=== PATIENT | male | born 1960 | race Caucasian/White ===

== ENCOUNTER 2024-07-06 15:24 | Observation (INO) ==
--- NOTE | 2024-07-06 15:51 | Emergency Department Note ---
HPI - Extremity Injury (Lower) General Chief Complaint: Extremity Injury, Lower Stated Complaint: LEFT KNEE PAIN Time Seen by Provider: 07/06/24 15:45 Source: patient and family Mode of arrival: walk-in Limitations: no limitations History of Present Illness HPI Narrative: This is a 64 year old male patient that presents to the ER with c/o left knee pain and redness since Wednesday when he woke up. Patient denies any numbness, tingling, weakness or N/V. Patient denies any fever, chills, or known injury MD complaint: Reports other (Knee pain) Onset (ago): day(s) (4) Injury: Left: knee (Pain and tenderness with erythema streaking up the leg) Type of Injury: Reports unknown Place: Reports home Severity: moderate Relieving factors: Reports immobilization Exacerbating factors: Reports weight bearing, movement and palpation Other symptoms: Reports other (Pain and tenderness) Treatments prior to arrival: Reports NSAIDS Related Data Allergies Allergy/AdvReac Type Severity Reaction Status Date / Time No Known Drug Allergies Allergy Verified 07/06/24 15:49 Review of Systems 2 Status of ROS 10 or more systems reviewed and unremark able except as noted in history and below Constitutional Denies: fever, chills, change in weight or fatigue Eyes Denies: change in vision, blurry vision or blind spots Ears, nose, mouth, and throat Denies: throat pain, neck pain, throat swelling, difficulty swallowing, hoarseness or mouth pain Cardiovascular Denies: chest pain, palpitations, edema, swelling of feet/ankles or lightheadedness Respiratory Denies: shortness of breath, cough, wheezing, stridor or pain on inspiration Gastrointestinal Denies: abdominal pain, nausea, vomiting, coffee grounds in vomit or heartburn Genitourinary Denies: painful urination, urinary frequency, urinary urgency or blood in urine Musculoskeletal Reports: extremity pain and joint pain; Denies: back pain, neck pain, extremity swelling or limited range of motion Integumentary/Breast Reports: redness (left knee); Denies: rash or itching Neurological Denies: headache, numbness in extremities, weakness in extremities, lack of coordination or dizziness Psychiatric Denies: anxiety, mood swings, panic attacks, change in sleep pattern or hopelessness Endocrine Denies: excessive urination, excessive thirst, fatigue, cold intolerance or excessive sweating Hematologic/Lymphatic Denies: easy bruising, easy bleeding or enlarged lymph nodes Allergic/Immunologic Denies: hives, throat swelling, tongue swelling or facial swelling PFSH PFSH Medical History (Updated 07/06/24 @ 15:51 by Mayra Kennedy, RN) HLD (hyperlipidemia) Hypertension Depression Surgical History (Updated 07/06/24 @ 15:51 by Mayra Kennedy, RN) History of knee surgery History of hernia repair History of neck surgery History of shoulder surgery Social History Smoking status: never smoker Exam 2 Constitutional: normal general appearance and no apparent distress HENMT: normocephalic, head/scalp atraumatic, hearing grossly normal bilaterally, external ears normal, nasal mucous membranes normal, external nose normal, oral mucous membranes normal, oropharynx normal and dentition normal Eyes: PERRL, EOMs intact bilaterally, conjunctivae normal and no scleral icterus Neck/C-Spine: visual inspection normal and trachea midline Lymph: no lymphadenopathy noted Chest: inspection of chest normal Respiratory: breath sounds equal bilaterally, normal respiratory effort, clear to auscultation bilaterally, no wheezes, no rales, no retractions and no use of accessory muscles Cardiovascular: normal heart rate noted, regular rhythm noted, no gallop, no rub, no murmur, no JVD, no clicks, peripheral pulses 2+ throughout, no bruits noted and no additional abnormal heart sounds Gastrointestinal: abdomen normal to inspection, abdomen soft to palpation, nontender to palpation, nontender to percussion, nondistended, normoactive bowel sounds, no hepatosplenomegaly, no masses, no pulsatile mass, no ascites and no hernia Genitourinary: no CVA tenderness Back/Pelvis: spine normal to inspection Extremities: abnormal to inspection (left knee with redness , hot to touch) redness streaking from left knee to below left knee Neurology: no focal motor deficit noted, gait normal, speech normal, coordination normal, no pronator drift noted, no fasciculations noted and GCS normal Psychiatry: Mental Status Exam documented within this Exam's Psych section mental status grossly normal, oriented x3, thought process normal, cooperative, affect normal and memory normal Skin: skin color normal Image: Body (4 view):  1. Erythema and tenderness Course Course Hospital Course: 1800: signed patient over to Ilya ROWE for continued care 2030: Patient's ultrasound has returned revealing no DVT but does show a effusion of the left knee, patient does have mild leukocytosis with 11,000 white blood cell count, [facility] for IV antibiotics, cellulitis, knee effusion, pain control, and ongoing evaluation of the area. Patient and family have agreed with the treatment plan at this time. Discharge Plan Discharge Patient Disposition: Admitted As Observation Condition: Stable Clinical Impression: Effusion of left knee joint, Cellulitis, Leukocytosis, Dehydration, Knee pain, left Time of Disposition: 21:00
[2024-07-06 16:08] LABS: Basophils #(Absolute) Auto 0.1 (0.0-0.1); Basophils%(Percent) Auto 0.6 (0.0-1.3); Eosinophils#(Absolute)Auto 0.3 (0.0-0.3); Eosinophils%(Percent) Auto 2.8 % (0.0-4.0); Granulocytes % - Auto 65.2 % (49.1-73.1); Hematocrit 40.4 % (41.3-50.1); Monocytes %(Percent)- Auto 8.9 % (4.5-10.7); Platelet Count 273 K/uL (142-355); White Blood Count 10.8 K/uL (3.7-9.6)
[2024-07-06 16:12] LABS: Potassium 4.3 mmol/L (3.6-5.2)
[2024-07-06] MEDS: CLINDAMYCIN PHOSPHATE/D5W 900 MG/50 ML PIGGYBACK IV STA (16:37)
[2024-07-06] MEDS: 0.9 % SODIUM CHLORIDE 1000 ML 1,000 ML IV STA (16:38)
[2024-07-06] MEDS: KETOROLAC 30 MG/ML INJ VIAL IVP ONE (16:38)
[2024-07-06] MEDS ORDERED: ONDANSETRON HCL/PF 4 MG/2 ML VIAL INJ PRN (22:09)
[2024-07-06] MEDS ORDERED: bisacodyL 10 MG SUPP.RECT PR PRN (22:09)
[2024-07-06] MEDS ORDERED: MORPHINE SULFATE 4 MG/ML CARTRIDGE IV PRN (22:09)
[2024-07-06] MEDS ORDERED: MAGNESIUM, ALUMINUM HYDROXIDE 30 ML ORAL.SUSP PO PRN (22:09)
[2024-07-06] MEDS ORDERED: ACETAMINOPHEN 1000 MG/100 ML 1,000 MG/100 ML IV.SOLN IV PRN (22:09)
[2024-07-06] MEDS: ACETAMINOPHEN 1000 MG/100 ML 1,000 MG/100 ML IV.SOLN IV STA (22:12)
[2024-07-06 22:41] LABS: Urine Appearance CLEAR (CLEAR); Urine Blood NEGATIVE (NEG - TRACE); Urine Color AMBER (STRAW/YELL.)
[2024-07-06 22:42] LABS: Urine Urobilinogen Normal (NORMAL)
[2024-07-07] MEDS: 0.9 % SODIUM CHLORIDE 1000 ML 1,000 ML IV SCH (00:29)
[2024-07-07] MEDS: CLINDAMYCIN PHOSPHATE/D5W 300 MG/50 ML PIGGYBACK IV SCH (00:29)
[2024-07-07 05:46] LABS: Basophils #(Absolute) Auto 0.1 (0.0-0.1); Basophils%(Percent) Auto 0.8 (0.0-1.3); Eosinophils%(Percent) Auto 0.1 % (0.0-4.0); Granulocytes % - Auto 72.3 % (49.1-73.1); Granulocytes#(Absolute)- Auto 6.9 (2.0-6.2); Hematocrit 36.9 % (41.3-50.1); Mean Corpuscular Volume 88.4 fl (81.9-96.5); Monocytes #(Absolute)- Auto 0.7 (0.2-0.8); Monocytes %(Percent)- Auto 7.2 % (4.5-10.7); Platelet Count 255 K/uL (142-355); White Blood Count 9.6 K/uL (3.7-9.6)
[2024-07-07] MEDS: KETOROLAC 30 MG/ML INJ VIAL IVP PRN (07:14)
[2024-07-07] MEDS: SERTRALINE HCL 50 MG TABLET PO SCH (10:33)
[2024-07-07] MEDS: PROPRANOLOL HCL 60 MG PO SCH ×2 (10:33→21:33)
[2024-07-07] MEDS: SIMVASTATIN 40 MG TABLET PO SCH ×2 (10:34→21:34)
[2024-07-07] MEDS: AMLODIPINE OLMESARTAN PO SCH (10:39)
[2024-07-07] MEDS: SIMVASTATIN 10 MG TABLET ONE ×2 (10:40→21:38)
[2024-07-07] MEDS: METHYLPREDNISOLONE SOD SUCC/PF 125 MG/2 ML VIAL IVP SCH (14:54)
[2024-07-07] MEDS: CEFTRIAXONE SODIUM 1 GM in 0.9 % SODIUM CHLORIDE MB+ 50 ML IV SCH (22:27)
[2024-07-08 05:02] LABS: Basophils%(Percent) Auto 0.2 (0.0-1.3); Granulocytes % - Auto 84.2 % (49.1-73.1); Granulocytes#(Absolute)- Auto 9.4 (2.0-6.2); Hematocrit 38.2 % (41.3-50.1); Mean Corpuscular Volume 88.4 fl (81.9-96.5); Monocytes #(Absolute)- Auto 0.3 (0.2-0.8); Platelet Count 308 K/uL (142-355); White Blood Count 11.1 K/uL (3.7-9.6)
[2024-07-08 05:29] LABS: Potassium 4.1 mmol/L (3.6-5.2)
[2024-07-08 08:05] VITALS: BP 131/87; PULSE 60; RESP 18; TEMP 98.3
[2024-07-08] MEDS: MULTIVITAMIN TABLET PO SCH (08:25)
--- NOTE | 2024-07-08 09:23 | History & Physical Report ---
H&P: HPI History of Present Illness Chief complaint: LEFT KNEE PAINX4 DAYS Narrative: This is a 64 year old male patient- With past medical history including hypertension, hyperlipidemia, depression and type 2 diabetes- that presented to the ER with c/o left knee pain and redness since Wednesday morning. Patient denies any numbness, tingling, weakness or N/V. Patient denies any fever, chills, or known injury. Patient's ultrasound revealed an effusion of the left knee but no DVT. Patient did have mild leukocytosis with 11,000 white blood cell count. [facility] for suspected cellulitis with knee effusion, pain control, and ongoing evaluation of the area. Review of Systems Status of ROS 10 or more systems reviewed and unremark able except as noted in history and below Constitutional Denies: fever, chills, change in weight or fatigue Eyes Denies: change in vision, blurry vision or blind spots Ears, nose, mouth, and throat Denies: throat pain, neck pain, throat swelling, difficulty swallowing, hoarseness or mouth pain Cardiovascular Denies: chest pain, palpitations, edema, swelling of feet/ankles, lightheadedness or shortness of breath with exertion Respiratory Denies: shortness of breath, cough, wheezing, stridor or pain on inspiration Gastrointestinal Denies: abdominal pain, nausea, vomiting, coffee grounds in vomit, heartburn or difficulty swallowing Genitourinary Denies: painful urination, urinary frequency, urinary urgency or blood in urine Musculoskeletal Reports: extremity pain and joint pain; Denies: back pain, neck pain, extremity swelling or limited range of motion Integumentary/Breast Reports: redness (left knee); Denies: rash or itching Neurological Denies: headache, numbness in extremities, weakness in extremities, lack of coordination or dizziness Psychiatric Denies: anxiety, mood swings, panic attacks, change in sleep pattern or hopelessness Endocrine Denies: excessive urination, excessive thirst, fatigue, cold intolerance or excessive sweating Hematologic/Lymphatic Denies: easy bruising, easy bleeding or enlarged lymph nodes Allergic/Immunologic Denies: hives, throat swelling, tongue swelling, facial swelling or wheezing [facility] Medical History (Updated 07/08/24 @ 09:54 by Natalia Linda NP) Type 2 diabetes mellitus with unspecified complications HLD (hyperlipidemia) Hypertension Depression Surgical History History of knee surgery History of hernia repair History of neck surgery History of shoulder surgery Social History Smoking status: never smoker Problems where you live: no known problems Highest level of school completed/degree received: high school Do you think of yourself as: straight/heterosexual Gender Identity: male Meds Home Medications and Allergies Home Medications Medication Instructions Recorded Confirmed Type amlodipine 5 mg-olmesartan 40 mg 1 tab PO QDAY 07/07/24 07/07/24 History tablet multivitamin (Daily Multi-Vitamin 1 tab PO DAILY 07/07/24 07/07/24 History tablet) propranolol 60 mg capsule,24 60 mg PO QDAY 07/07/24 07/07/24 History hr,extended release semaglutide 2 mg/dose (8 mg/3 mL) 2 mg subcut QWEEK 07/07/24 07/07/24 History subcutaneous pen injector (Ozempic) sertraline 50 mg tablet 150 mg PO QDAY 07/07/24 07/07/24 History simvastatin 40 mg tablet 40 mg PO QDAY 07/07/24 07/07/24 History terbinafine HCl 250 mg tablet 250 mg PO QDAY 07/07/24 07/07/24 History clindamycin HCl 300 mg capsule 300 mg PO TID Cellulitis and 07/08/24 Rx effusion of left knee 7 days #21 caps methylprednisolone 4 mg tablets in See Rx Instructions PO .COMPLEX 07/08/24 Rx a dose pack (Medrol (Samson)) Left knee pain and effusion #21 ea Allergies Allergy/AdvReac Type Severity Reaction Status Date / Time No Known Drug Allergies Allergy Verified 07/07/24 00:56 Exam Constitutional: normal general appearance, no apparent distress, abnormal body habitus (obese), no limitations and alert Vital Signs - 24 hr 07/07/24 10:33 07/07/24 11:57 07/07/24 16:00 Temperature 98.2 F 97.8 F Pulse Rate [Right] 78 73 Respiratory Rate 18 18 Blood Pressure 120/75 Blood Pressure [Le ft Arm] 148/86 148/90 Pulse Oximetry 96 97 Oxygen Delivery Me thod Room Air Room Air 07/07/24 20:03 07/07/24 23:39 07/08/24 04:23 Temperature 97.8 F 98.0 F 97.7 F Pulse Rate [Right] 107 H 92 H 80 Respiratory Rate 24 18 20 Blood Pressure Blood Pressure [Le ft Arm] 141/90 139/80 123/68 Pulse Oximetry 95 94 L 95 Oxygen Delivery Me thod Nasal Cannula 07/08/24 05:00 07/08/24 08:04 Temperature 97.7 F 98.3 F Pulse Rate [Right] 80 60 Respiratory Rate 20 18 Blood Pressure Blood Pressure [Le ft Arm] 123/68 131/87 Pulse Oximetry 95 96 Oxygen Delivery Me thod Room Air HENMT: normocephalic, head/scalp atraumatic, hearing grossly normal bilaterally, external ears normal, nasal mucous membranes normal, external nose normal, oral mucous membranes normal, oropharynx normal and dentition normal Eyes: PERRL, EOMs intact bilaterally, conjunctivae normal and no scleral icterus Neck/C-Spine: visual inspection normal and trachea midline Lymph: no lymphadenopathy noted Chest: inspection of chest normal and palpation of chest normal Respiratory: breath sounds equal bilaterally, normal respiratory effort, clear to auscultation bilaterally, no wheezes, no rales, no retractions and no use of accessory muscles Cardiovascular: normal heart rate noted, regular rhythm noted, no murmur, no JVD, peripheral pulses 2+ throughout and no additional abnormal heart sounds Gastrointestinal: abdomen normal to inspection, abdomen soft to palpation, nontender to palpation, nontender to percussion, nondistended, normoactive bowel sounds, no hepatosplenomegaly, no masses, no pulsatile mass, no ascites and no hernia Genitourinary: no CVA tenderness Back/Pelvis: spine normal to inspection, no thoracic spine tenderness and no lumbar spine tenderness Extremities: abnormal to inspection (left knee with redness , hot to touch) and tenderness noted (tenderness below patella of left knee) redness streaking from left knee to below left knee Neurology: no focal motor deficit noted, gait normal, speech normal, coordination normal, no pronator drift noted, no fasciculations noted and GCS normal Psychiatry: Mental Status Exam documented within this Exam's Psych section mental status grossly normal, oriented x3, thought process normal, cooperative, affect normal and memory normal Skin: skin color normal, no wounds, skin turgor normal, no jaundice and no petechiae Assessment and Plan Assessment and Plan (1) Cellulitis of left knee: Assessment and Plan: Admit for IV antibiotics, pain control, and monitoring of area Clindamycin IV 300 mg every 6 hours Rocephin 1 g daily Code(s): L03.116 - Cellulitis of left lower limb (2) Effusion, left knee: Assessment and Plan: Admit for IV antibiotics, pain control, and monitoring of area Clindamycin IV 300 mg every 6 hours Rocephin 1 g daily P.R.I.C.E-continue with Brannon wrap as directed, elevate and position for comfort and ice packs as directed and as needed for comfort and swelling. Code(s): M25.462 - Effusion, left knee (3) Left knee pain: Assessment and Plan: Admit for IV antibiotics, pain control, and monitoring of area Clindamycin IV 300 mg every 6 hours Rocephin 1 g daily P.R.I.C.E-continue with Brannon wrap as directed, elevate and position for comfort and ice packs as directed and as needed for comfort and swelling. Toradol 15 mg IV every 6 hours as needed for pain Qualifiers: Chronicity: acute Qualified Code(s): M25.562 - Pain in left knee Code(s): M25.562 - Pain in left knee (4) Type 2 diabetes mellitus with unspecified complications: Assessment and Plan: Fingerstick blood sugars before meals and at bedtime Diabetic diet Continue home meds as directed Ozempic 2 mg subcu weekly. Code(s): E11.8 - Type 2 diabetes mellitus with unspecified complications (5) Hypertension: Assessment and Plan: Vital signs per protocol Continue home medicines as directed: olmesartanamlodipine 1 tab daily, propranolol 60 mg p.o. daily Qualifiers: Hypertension type: primary hypertension Qualified Code(s): I10 - Essential (primary) hypertension Code(s): I10 - Essential (primary) hypertension (6) HLD (hyperlipidemia): Assessment and Plan: Diabetic diet Continue home medications as directed-simvastatin 40 mg p.o. nightly Qualifiers: Hyperlipidemia type: mixed hyperlipidemia Qualified Code(s): E78.2 - Mixed hyperlipidemia Code(s): E78.5 - Hyperlipidemia, unspecified (7) Depression: Assessment and Plan: Currently asymptomatic and reports manage well on current regiment. Will continue home medications as directed sertraline 150 mg p.o. daily Qualifiers: Depression Type: unspecified Qualified Code(s): F32.A - Depression, unspecified Code(s): F32.A - Depression, unspecified Plan Admit to the [facility] floor for IV antibiotics for suspected cellulitis with knee effusion, pain control, and ongoing evaluation of the area. Consult [place] [facility] at discharge for follow-up. Results Labs Labs: CBC WBC 11.1 K/uL (3.7-9.6) H 07/08/24 05:00 RBC 4.3 M/uL (4.40-5.80) L 07/08/24 05:00 Hgb 12.8 gm/dL (14.0-17.4) L 07/08/24 05:00 Hct 38.2 % (41.3-50.1) L 07/08/24 05:00 MCV 88.4 fl (81.9-96.5) 07/08/24 05:00 MCH 29.7 pg (27.6-33.7) 07/08/24 05:00 MCHC 33.5 g/dl (33.0-35.7) 07/08/24 05:00 RDW 13.4 % (11.0-14.8) 07/08/24 05:00 Plt Count 308 K/uL (142-355) 07/08/24 05:00 MPV 8.1 fl (6.0-10.4) 07/08/24 05:00 Gran % 84.2 % (49.1-73.1) H 07/08/24 05:00 Lymph % (Auto) 12.6 % (17.6-39.05) L 07/08/24 05:00 [place] % (Auto) 3.0 % (4.5-10.7) L 07/08/24 05:00 Eos % (Auto) 0.0 % (0.0-4.0) 07/08/24 05:00 Baso % (Auto) 0.2 (0.0-1.3) 07/08/24 05:00 Lymph # (Auto) 1.4 (0.8-2.9) 07/08/24 05:00 [place]key # (Auto) 0.3 (0.2-0.8) 07/08/24 05:00 Eos # (Auto) 0.0 (0.0-0.3) 07/08/24 05:00 Baso # (Auto) 0.0 (0.0-0.1) 07/08/24 05:00 Absolute Gran (auto) 9.4 (2.0-6.2) H 07/08/24 05:00 BMP Sodium 142 mmol/L (136-145) 07/08/24 05:00 Potassium 4.1 mmol/L (3.6-5.2) 07/08/24 05:00 Chloride 108.0 mmol/L (98-107) H 07/08/24 05:00 Carbon Dioxide 25 mmol/L (21-32) 07/08/24 05:00 Anion Gap 9.0 mEq/L (4-14) 07/08/24 05:00 BUN 29 mg/dL (7-18) H 07/08/24 05:00 Creatinine 1.4 mg/dL (0.6-1.3) H 07/08/24 05:00 Estimated GFR 56.8 (>59.9) 07/08/24 05:00 Glucose 110 mg/dL (70-110) 07/08/24 05:00 Calcium 8.5 mg/dL (8.5-10.1) 07/08/24 05:00 Phosphorus 3.3 mg/dL (2.5-4.9) 07/08/24 05:00 Magnesium 1.9 mg/dL (1.8-2.4) 07/08/24 05:00 Total Bilirubin 0.22 mg/dL (0.0-1.0) 07/08/24 05:00 AST 14 U/L (15-37) L 07/08/24 05:00 ALT 23 U/L (30-65) L 07/08/24 05:00 Alkaline Phosphatase 45 U/L (50-136) L 07/08/24 05:00 Total Protein 6.5 g/dL (6.4-8.2) 07/08/24 05:00 Albumin 2.8 g/dL (3.4-5.0) L 07/08/24 05:00 Liver Function Total Bilirubin 0.22 mg/dL (0.0-1.0) 07/08/24 05:00 AST 14 U/L (15-37) L 07/08/24 05:00 ALT 23 U/L (30-65) L 07/08/24 05:00 Alkaline Phosphatase 45 U/L (50-136) L 07/08/24 05:00 Total Protein 6.5 g/dL (6.4-8.2) 07/08/24 05:00 Albumin 2.8 g/dL (3.4-5.0) L 07/08/24 05:00 Urine Urine Color Sa[place] (STRAW/YELL.) 07/06/24 22:05 Urine Appearance Clear (CLEAR) 07/06/24 22:05 Ur Specific [place] 1.030 (1.001-1.035) 07/06/24 22:05 Urine Protein Negative (NEGATIVE) 07/06/24 22:05 Urine Glucose (UA) 4+ (NORMAL) 07/06/24 22:05 Urine Ketones Negative (NEGATIVE) 07/06/24 22:05 Urine Occult Blood Negative (NEG - TRACE) 07/06/24 22:05 Urine Nitrite Negative (NEGATIVE) 07/06/24 22:05 Urine Bilirubin Negative (NEGATIVE) 07/06/24 22:05 Urine Urobilinogen Normal (NORMAL) 07/06/24 22:05 Ur Leukocyte Esterase Negative (NEGATIVE) 07/06/24 22:05 Pulse Oximetry SpO2 results: 96% RA Attestation: I have reviewed the pertinent pulse oximetry results. Imaging Imaging ordered: Venous US and other (left knee xray) Attestation: I have reviewed the pertinent imaging results. Radiologist's impression: EXAM: XR KNEE LT 3V HISTORY: painpain; COMPARISON: None. TECHNIQUE: AP, lateral, and oblique views were acquired. FINDINGS: The alignment is anatomic. There is no fracture or dislocation. There is no significant degeneration. There is no worrisome soft tissue abnormality. IMPRESSION: Negative. THIS IS AN ELECTRONICALLY VERIFIED FINAL REPORT 07/06/2024 4:04 PM - Electronically signed by Mari Webb MD EXAM: US VENOUS DUPLEX LE LT HISTORY: LT KNEE PAIN ; COMPARISON: No relevant prior studies available. TECHNIQUE: Grayscale and color Doppler images of the left lower extremity. FINDINGS: Common femoral, femoral, popliteal and posterior tibial veins demonstrate normal compressibility, color Doppler flow, waveforms and augmentation with no filling defects. Soft tissues: Left knee joint effusion. IMPRESSION: 1. No evidence of deep venous thrombus. 2. Nonspecific joint effusion. THIS IS AN ELECTRONICALLY VERIFIED FINAL REPORT 07/06/2024 7:18 PM - Electronically signed by Ryan Preston MD
--- NOTE | 2024-07-08 11:27 | Discharge Summary ---
DS: Providers Provider Date of admission: 07/06/24 22:09 Primary care physician: LUKE ESTRELLA MD Admitting clinician: Alicia Cardona Attending physician on admission: Linda Dash Consults: 07/07/24 10:21 Consult to Physical Therapy Routine Comment: Consulting Provider: Reason for consultation: knee and leg pain and effusion Physician Instructions: evaluate and treat Attending physician on discharge: Linda Dash Discharging clinician: Natalia Linda Anticipated date of discharge: 07/08/24 DS: Diagnosis Discharge Diagnosis (1) Cellulitis of left knee: (2) Effusion, left knee: Assessment and plan: Complete antibiotics as directed along with medrol dose pack. Follow up with [facility]o- [facility]- Call them on Wednesday and schedule follow up appo intment. ROM and exercise as tolerated. P.R.I.C.E-continue with Brannon wrap as directed, elevate and position for comfort and ice packs as directed and as needed for comfort and swelling. Schedule appointment with PCP for hospital follow-up- Call them on Wednesday and schedule follow-up appointment. (3) Left knee pain: Assessment and plan: Complete antibiotics as directed along with medrol dose pack. Follow up with [facility]- [facility]- Call them on Wednesday and schedule follow up appointment. ROM and exercise as tolerated. P.R.I.C.E-continue with Brannon wrap as directed, elevate and position for comfort and ice packs as directed and as needed for comfort and swelling. Schedule appointment with PCP for hospital follow-up- Call them on Wednesday and schedule follow-up appointment. Continue home medications as directed. Qualifiers: Chronicity: acute Qualified Code(s): M25.562 - Pain in left knee (4) Type 2 diabetes mellitus with unspecified complications: Assessment and plan: Continue to monitor blood sugars before meals and at bedtime. Continue with diabetic diet. Continue home medications as directed. Schedule hospital follow-up appointment with PCP-call them on Wednesday to schedule this appointment. (5) Hypertension: Assessment and plan: Continue monitoring blood pressures log any elevated readings and bring that log to your follow-up appointment with your primary care provider. Continue home medications as directed Schedule hospital follow-up appointment with PCP-call them on Wednesday to schedule this appointment. Qualifiers: Hypertension type: primary hypertension Qualified Code(s): I10 - Essential (primary) hypertension (6) HLD (hyperlipidemia): Assessment and plan: Continue with diabetic diet. Continue home medications as directed. Schedule hospital follow-up appointment with PCP-call them on Wednesday to schedule this appointment. Reviewed importance of diet and exercise. Qualifiers: Hyperlipidemia type: mixed hyperlipidemia Qualified Code(s): E78.2 - Mixed hyperlipidemia (7) Depression: Assessment and plan: Continue home medications as directed. Schedule hospital follow-up appointment with PCP-call them on Wednesday to schedule this appointment. Report any new/worsening symptoms. Qualifiers: Depression Type: unspecified Qualified Code(s): F32.A - Depression, unspecified Plan Continue home medications as directed. Is important that you schedule a hospital follow-up appointment with your PCP- call them on Wednesday and schedule this follow-up appointment. It is also important that you follow-up with your orthopedic physician at [facility]-call them on Wednesday as well and schedule this follow-up appointment. Contact us if you have any difficulty obtaining your medications or these follow-up appointments. DS: Summary Hospital Course Hospital Course: Patient was admitted to the [facility] floor for IV antibiotics for suspected cellulitis with knee effusion, pain control, and ongoing evaluation of the area. His hospital course remained uneventful. The erythema and swelling that was at the left knee on admission has resolved. He has continued with mild tenderness to palpitation below the left patella. He rates his pain controlled at a scale of "4" of 10 on pain scale. He is using the Brannon wrap and ice packs as directed and as needed for comfort. He is ambulatory without assistance. He continues to be neurovascularly intact and denies any numbness or tingling. His labs have improved following IV hydration and IV antibiotics. He is stable and ready to be discharged home to follow-up outpatient with his PCP and orthopedic provider. Time spent discussing smoking cessation with patient: more than 10 minutes Status at Discharge Functional status at discharge: independent ambulation Overall status at discharge: patient is back to baseline Time Spent with Patient Time attestation: Total time spent providing and/or coordinating discharge services: Time spent: greater than 30 minutes Exam Constitutional: normal general appearance, no apparent distress, abnormal body habitus (obese), no limitations and alert Vital Signs - 24 hr 07/07/24 11:57 07/07/24 16:00 07/07/24 20:03 Temperature 98.2 F 97.8 F 97.8 F Pulse Rate [Right] 78 73 107 H Respiratory Rate 18 18 24 Blood Pressure [Le ft Arm] 148/86 148/90 141/90 Pulse Oximetry 96 97 95 Oxygen Delivery Me thod Room Air Room Air Nasal Cannula 07/07/24 23:39 07/08/24 04:23 07/08/24 05:00 Temperature 98.0 F 97.7 F 97.7 F Pulse Rate [Right] 92 H 80 80 Respiratory Rate 18 20 20 Blood Pressure [Le ft Arm] 139/80 123/68 123/68 Pulse Oximetry 94 L 95 95 Oxygen Delivery Me thod 07/08/24 08:04 Temperature 98.3 F Pulse Rate [Right] 60 Respiratory Rate 18 Blood Pressure [Le ft Arm] 131/87 Pulse Oximetry 96 Oxygen Delivery Me thod Room Air HENMT: normocephalic, head/scalp atraumatic, hearing grossly normal bilaterally, external ears normal, nasal mucous membranes normal, external nose normal, oral mucous membranes normal, oropharynx normal and dentition normal Eyes: PERRL, EOMs intact bilaterally, conjunctivae normal and no scleral icterus Neck/C-Spine: visual inspection normal and trachea midline Lymph: no lymphadenopathy noted Chest: inspection of chest normal and palpation of chest normal Respiratory: breath sounds equal bilaterally, normal respiratory effort, clear to auscultation bilaterally, no wheezes, no rales, no retractions and no use of accessory muscles Cardiovascular: normal heart rate noted, regular rhythm noted, no gallop, no rub, no murmur, no JVD, no clicks, peripheral pulses 2+ throughout, no bruits noted and no additional abnormal heart sounds Gastrointestinal: abdomen normal to inspection, abdomen soft to palpation, nontender to palpation, nontender to percussion, nondistended, normoactive bowel sounds, no hepatosplenomegaly, no masses, no pulsatile mass, no ascites and no hernia Genitourinary: no CVA tenderness Back/Pelvis: spine normal to inspection, no thoracic spine tenderness and no lumbar spine tenderness Extremities: normal to inspection (left knee with redness , hot to touch) and tenderness noted (tenderness below patella of left knee) Neurology: no focal motor deficit noted, gait normal, speech normal, coordination normal, no pronator drift noted, no fasciculations noted and GCS normal Psychiatry: Mental Status Exam documented within this Exam's Psych section mental status grossly normal, oriented x3, thought process normal, cooperative, affect normal and memory normal Skin: skin color normal, no wounds, skin turgor normal, no jaundice and no petechiae DS: Data Data Completed and Pending Labs on day of discharge: Labs from last 24 hours 07/08/24 07/07/24 05:00 11:05 WBC 11.1 H RBC 4.3 L Hgb 12.8 L Hct 38.2 L MCV 88.4 MCH 29.7 MCHC 33.5 RDW 13.4 Plt Count 308 MPV 8.1 Gran % 84.2 H Lymph % (Auto) 12.6 L [place] % (Auto) 3.0 L Eos % (Auto) 0.0 Baso % (Auto) 0.2 Lymph # (Auto) 1.4 [place] # (Auto) 0.3 Eos # (Auto) 0.0 Baso # (Auto) 0.0 Absolute Gran (auto) 9.4 H Sodium 142 Potassium 4.1 Chloride 108.0 H Carbon Dioxide 25 Anion Gap 9.0 BUN 29 H Creatinine 1.4 H Estimated GFR 56.8 Glucose 110 Uric Acid 5.3 Calcium 8.5 Phosphorus 3.3 Magnesium 1.9 Total Bilirubin 0.22 AST 14 L ALT 23 L Alkaline Phosphatase 45 L C-Reactive Protein 2.600 H 6.800 H Total Protein 6.5 Albumin 2.8 L Preliminary micro results at discharge 07/07/24 14:30 Blood Culture - Preliminary Blood - Venous Draw (Peripheral) 07/07/24 14:05 Blood Culture - Preliminary Blood - Venous Draw (Peripheral) Imaging Venous US: Attestation: I have reviewed the pertinent imaging results. Radiologist's impression: EXAM: US VENOUS DUPLEX LE LT HISTORY: LT KNEE PAIN ; COMPARISON: No relevant prior studies available. TECHNIQUE: Grayscale and color Doppler images of the left lower extremity. FINDINGS: Common femoral, femoral, popliteal and posterior tibial veins demonstrate normal compressibility, color Doppler flow, waveforms and augmentation with no filling defects. Soft tissues: Left knee joint effusion. IMPRESSION: 1. No evidence of deep venous thrombus. 2. Nonspecific joint effusion. THIS IS AN ELECTRONICALLY VERIFIED FINAL REPORT 07/06/2024 7:18 PM - Electronically signed by Ryan Preston MD Left knee x-ray: Attestation: I have reviewed the pertinent imaging results. Radiologist's impression: EXAM: XR KNEE LT 3V HISTORY: painpain; COMPARISON: None. TECHNIQUE: AP, lateral, and oblique views were acquired. FINDINGS: The alignment is anatomic. There is no fracture or dislocation. There is no significant degeneration. There is no worrisome soft tissue abnormality. IMPRESSION: Negative. THIS IS AN ELECTRONICALLY VERIFIED FINAL REPORT 07/06/2024 4:04 PM - Electronically signed by Mari Webb MD Discharge Plan Discharge Disposition: Home, Self-Care Condition: Stable Discharge Medications: New clindamycin HCl 300 mg capsule 300 mg PO TID 7 Days Qty: 21 0RF methylprednisolone [Medrol (Samson)] 4 mg tablets,dose pack See Rx Instructions .ROUTE .COMPLEX Qty: 21 0RF Rx Instructions: for 6 days Continued propranolol 60 mg capsule,extended release 24 hr 60 mg PO QDAY Patient Comments: TAKE 1 CAPSULE BY MOUTH ONCE DAILY simvastatin 40 mg tablet 40 mg PO QDAY Patient Comments: TAKE 1 TABLET BY MOUTH IN THE EVENING terbinafine HCl 250 mg tablet 250 mg PO QDAY Patient Comments: TAKE 1 TABLET BY MOUTH ONCE DAILY sertraline 50 mg tablet 150 mg PO QDAY Patient Comments: TAKE 3 TABLETS BY MOUTH ONCE DAILY amlodipine-olmesartan 5-40 mg tablet 1 tab PO QDAY Patient Comments: TAKE 1 TABLET BY MOUTH ONCE DAILY Ozempic 2 mg/dose (8 mg/3 mL) pen injector 2 mg SUBCUT QWEEK Patient Comments: INJECT 2 MG SUBCUTANEOUSLY ONCE A WEEK (WEDNESDAY) multivitamin [Daily Multi-Vitamin] Tablet 1 tab PO DAILY Patient Comments: TAKE 1 TABLET BY MOUTH ONCE DAILY Discharge Orders: Discharge Order (Routine); Ordered 07/08/24 Ordered By: Natalia Linda Activity: increase activity as tolerated Diet: diabetic diet Interventions: MED/SURG & ICU Observation Charge Sheet Last Done: 07/08/24 06:30 Activity Restrictions/Additional Instructions: Continue home medications as directed. Complete antibiotics as directed. ROM and exercise as tolerated. P.R.I.C.E-continue with Brannon wrap as directed, elevate and position for comfort and ice packs as directed and as needed for comfort and swelling. It is important that you schedule a hospital follow-up appointment with your PCP-call them on Wednesday and schedule this follow-up appointment. It is also important that you follow-up with your orthopedic physician at [facility]-call them on Wednesday as well and schedule this follow-up appointment. Contact us if you have any difficulty obtaining your medications or these follow-up appointments. Forms: Portal/Health Info Access Inst Follow-Ups: SAMEER RODRÍGUEZ,LUKE [Other]
[2024-07-09] MEDS ORDERED: AMLODIPINE BESYLATE 5 MG TABLET PO SCH (09:00)
[2024-07-09] MEDS ORDERED: LOSARTAN POTASSIUM 50 MG TABLET PO SCH (09:00)
== END 2024-07-08 12:47 | disposition home or self-care (01) ==
LOC: ED 15:24 → MS 15:24
PROVIDERS: ADMIT Nurse Practitioner Family; ATTEND Family Medicine